=== PATIENT | male | born 1940 | race Caucasian/White ===

== ENCOUNTER 2017-08-01 09:22 | Inpatient (IN) | payer OTHER, MEDICAID, MEDICARE ==
[2017-08-01] VITALS (9 sets, daily range): BP systolic 93–146; BP diastolic 51–81; PULSE 78–100; RESP 16–18; TEMP 96.9–99.6; O2SAT 94–100
[~2017-08-01] VITALS: Ht 157.5 cm; Wt 79.5 kg
[~2017-08-01 09:22] MED LIST: ADVA100A INH; SIMV20TA OR
[2017-08-01] MEDS ORDERED: SIMV40TA PO (09:42)
[2017-08-01] MEDS ORDERED: ADVA100A INH (09:42)
[2017-08-01] MEDS ORDERED: LOSA50TA2 PO (09:42)
[2017-08-01] MEDS ORDERED: VITA100021 SL (09:42)
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
[2017-08-01 10:17] LABS: AUTOMATED NEUTROPHIL # 8.3 TH/MM3 (1.8-7.7); BASOPHIL # 0.1 TH/MM3 (0-0.2); BASOPHIL % 0.9 % (0.0-2.0); EOSINOPHIL # 0.2 TH/MM3 (0-0.4); EOSINOPHIL % 1.5 % (0.0-4.0); HEMATOCRIT 35.3 % (39.0-51.0); HEMO FLAGS DIFF FINAL; I-STAT POTASSIUM 2.9 MMOL/L (3.5-4.9); LYMPH % 16.1 % (9.0-44.0); LYMPHOCYTE # 1.7 TH/MM3 (1.0-4.8); MEAN CORPUSCULAR HEMOGLOBIN 30.6 PG (27.0-34.0); MONO % 3.8 % (0.0-8.0); NEUT % 77.7 % (16.0-70.0); PLATELET COUNT 266 TH/MM3 (150-450); RED BLOOD COUNT 3.92 MIL/MM3 (4.50-5.90); RED CELL DISTRIBUTION WIDTH 14.2 % (11.6-17.2); WHITE BLOOD COUNT 10.7 TH/MM3 (4.0-11.0)
[2017-08-01 10:25] LABS: APTT (PATIENT) 23.8 SEC (24.3-30.1); PROTHROMBIN TIME - PATIENT 11.2 SEC (9.8-11.6)
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
[2017-08-01] MEDS ORDERED: IOHEXOL 350 MG/ML 10 ML VIAL (for RAD DIAG) IVCONTRAST ONE (10:46)
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
[2017-08-01] MEDS ORDERED: TETANUS/DIPHTHERIA TOXOID ADULT 0.5 ML VIAL IM ONE (11:30)
[2017-08-01] MEDS ORDERED: LIDOCAINE HCL 1% 50 ML VIAL INFIL ONE (11:30)
--- NOTE | 2017-08-01 11:47 | RADRPT ---
EXAM DATE/TIME: 08/01/2017 11:24 [facility] COMPARISON: HAND RIGHT LIMITED (2VWS), August 01, 2017, 10:11. INDICATIONS : Left leg pain MEDICAL HISTORY : None. SURGICAL HISTORY : None. ENCOUNTER: Initial ACUITY: 1 day PAIN SCORE: 10/10 LOCATION: Left tibia FINDINGS: The examination demonstrates nondisplaced fractures involving the distal fibula and at least 2 points in the fibula. There is nondisplaced fracture involving the medial malleolus. The remainder of the osseous structures are grossly intact. CONCLUSION: 1. The fibular diaphysis is fractured in 2 places. These are nondisplaced. 2. Nondisplaced fracture of the medial malleolus. Johnnie Tipton MD on August 01, 2017 at 11:45 Board Certified Radiologist. This report was verified electronically.
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
[2017-08-01] MEDS: LACTATED RINGER'S 1000 ML INJ 1,000 ML IV SCH (12:17)
[2017-08-01] MEDS ORDERED: POTASSIUM CHLORIDE 25 MEQ EFFERVESCENT TAB PO ONE (12:30)
[2017-08-01] MEDS ORDERED: MISCELLANEOUS NURSING INFORMATION XX SCH (12:30)
[2017-08-01] MEDS ORDERED: HYDROmorphone HCL PF 1 MG/ML VIAL IVP PRN (12:30)
[2017-08-01] MEDS ORDERED: CHLORHEXIDINE GLUCONATE 2 % 1 PACK (2 CLOTHS) TOP PRN (12:30)
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
[2017-08-01] MEDS: HYDROmorphone HCL PF 1 MG/ML VIAL IVP PRN ×2 (16:25→22:07)
[2017-08-01] MEDS ORDERED: ONDANSETRON HCL 4 MG/2 ML VIAL IV PUSH PRN (17:15)
[2017-08-01] MEDS: DOCUSATE SODIUM 100 MG CAP PO SCH (21:44)
[2017-08-01] MEDS: ENOXAPARIN SODIUM 30 MG/0.3 ML SYRINGE SQ SCH (21:44)
[2017-08-01] MEDS: FAMOTIDINE 20 MG TAB PO SCH (21:44)
[2017-08-01] MEDS: MAGNESIUM HYDROXIDE SUSP 30 ML CUP PO SCH (21:44)
[2017-08-02] MEDS: HYDROmorphone HCL PF 1 MG/ML VIAL IVP PRN ×4 (01:31→23:27)
[2017-08-02 03:55] VITALS: BP 101/55; PULSE 72; RESP 18; TEMP 97.6; O2SAT 97
[2017-08-02] MEDS ORDERED: CHLORHEXIDINE GLUCONATE 2 % 1 PACK (2 CLOTHS) TOP SCH (04:00)
[2017-08-02] MEDS: LACTATED RINGER'S 1000 ML INJ 1,000 ML IV SCH ×2 (06:57→09:44)
[2017-08-02 08:00] VITALS: BP 102/67; PULSE 86; RESP 20; TEMP 98.6; O2SAT 95
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
[2017-08-02] MEDS: ENOXAPARIN SODIUM 30 MG/0.3 ML SYRINGE SQ SCH ×2 (09:42→20:00)
[2017-08-02] MEDS: LACTULOSE SYRUP 20 GM/30 ML CUP PO SCH (09:43)
[2017-08-02] MEDS: DOCUSATE SODIUM 100 MG CAP PO SCH ×2 (09:44→21:00)
[2017-08-02] MEDS: FAMOTIDINE 20 MG TAB PO SCH ×2 (09:44→23:23)
[2017-08-02] MEDS ORDERED: ACETAMINOPHEN/HYDROcodone 325 MG/5 MG TAB PO PRN (11:15)
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
[2017-08-02 12:00] VITALS: BP 101/65; PULSE 96; RESP 20; TEMP 98.7; O2SAT 93
[2017-08-02 12:26] LABS: BASOPHIL # 0.1 TH/MM3 (0-0.2); BASOPHIL % 1.3 % (0.0-2.0); EOSINOPHIL # 0.2 TH/MM3 (0-0.4); HEMATOCRIT 30.8 % (39.0-51.0); HEMO FLAGS DIFF FINAL; LYMPH % 10.1 % (9.0-44.0); LYMPHOCYTE # 0.9 TH/MM3 (1.0-4.8); MEAN CELL VOLUME 90.8 FL (80.0-100.0); MEAN CORPUSCULAR HEMOGLOBIN 30.7 PG (27.0-34.0); MEAN CORPUSCULAR HGB CONC 33.8 % (32.0-36.0); MONO % 6.6 % (0.0-8.0); PLATELET COUNT 182 TH/MM3 (150-450); RED CELL DISTRIBUTION WIDTH 14.5 % (11.6-17.2); WHITE BLOOD COUNT 8.7 TH/MM3 (4.0-11.0)
[2017-08-02 12:41] LABS: BICARBONATE 27.7 MEQ/L (21.0-32.0); POTASSIUM 3.9 MEQ/L (3.5-5.1)
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
[2017-08-02] MEDS: BACITRACIN TOP OINT 15 GM TUBE TOPICAL SCH ×2 (14:00→23:23)
[2017-08-02] MEDS: ACETAMINOPHEN/HYDROcodone 325 MG/7.5 MG TAB PO PRN ×2 (14:16→18:38)
[2017-08-02] MEDS ORDERED: ARTIFICIAL TEARS OPTH SOLN 15 ML BTL EACH EYE PRN (14:30)
[2017-08-02 16:00] VITALS: BP 100/61; PULSE 89; RESP 20; TEMP 98.9; O2SAT 94
[2017-08-02 17:20] VITALS: BP 82/43; PULSE 71
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
[2017-08-02 20:00] VITALS: BP 110/69; PULSE 87; RESP 18; TEMP 98.1; O2SAT 93
[2017-08-02] MEDS: MAGNESIUM HYDROXIDE SUSP 30 ML CUP PO SCH (21:00)
[2017-08-03] VITALS: BP 110/58; PULSE 90; RESP 18; TEMP 98.9; O2SAT 95
[2017-08-03 04:00] VITALS: BP 113/69; PULSE 110; RESP 17; TEMP 99.3; O2SAT 92
[2017-08-03 05:08] LABS: AUTOMATED NEUTROPHIL # 7.7 TH/MM3 (1.8-7.7); BASOPHIL # 0.1 TH/MM3 (0-0.2); BASOPHIL % 0.8 % (0.0-2.0); EOSINOPHIL # 0.3 TH/MM3 (0-0.4); EOSINOPHIL % 2.6 % (0.0-4.0); HEMATOCRIT 29.7 % (39.0-51.0); HEMO FLAGS DIFF FINAL; LYMPH % 7.8 % (9.0-44.0); LYMPHOCYTE # 0.8 TH/MM3 (1.0-4.8); MEAN CELL VOLUME 91.2 FL (80.0-100.0); MEAN CORPUSCULAR HEMOGLOBIN 30.7 PG (27.0-34.0); MEAN CORPUSCULAR HGB CONC 33.6 % (32.0-36.0); MONO % 10.8 % (0.0-8.0); PLATELET COUNT 177 TH/MM3 (150-450); RED BLOOD COUNT 3.26 MIL/MM3 (4.50-5.90); WHITE BLOOD COUNT 9.9 TH/MM3 (4.0-11.0)
[2017-08-03 05:34] LABS: BICARBONATE 27.7 MEQ/L (21.0-32.0); POTASSIUM 4.1 MEQ/L (3.5-5.1)
[2017-08-03 08:00] VITALS: BP 125/64; PULSE 94; RESP 18; TEMP 98.7; O2SAT 93
[2017-08-03] MEDS: FAMOTIDINE 20 MG TAB PO SCH ×2 (08:54→21:00)
[2017-08-03] MEDS: DOCUSATE SODIUM 100 MG CAP PO SCH ×2 (08:54→21:00)
[2017-08-03] MEDS: ENOXAPARIN SODIUM 30 MG/0.3 ML SYRINGE SQ SCH ×2 (08:54→20:00)
[2017-08-03] MEDS: BACITRACIN TOP OINT 15 GM TUBE TOPICAL SCH ×2 (08:55→21:00)
[2017-08-03] MEDS: HYDROmorphone HCL PF 1 MG/ML VIAL IVP PRN (08:56)
[2017-08-03] MEDS: SODIUM CHLORIDE 0.9% FLUSH 10 ML FLUSH IVF PRN (08:56)
[2017-08-03] MEDS: LACTULOSE SYRUP 20 GM/30 ML CUP PO SCH (08:56)
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
[2017-08-03] MEDS ORDERED: HYDR-3516 PO (11:34)
[2017-08-03] MEDS ORDERED: MAGN400S PO (11:34)
[2017-08-03] MEDS ORDERED: DOCU1CAP39 PO (11:34)
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
[2017-08-03 12:00] VITALS: BP 108/60; PULSE 85; RESP 18; TEMP 98.8; O2SAT 92
[2017-08-03 16:25] VITALS: BP 118/62; PULSE 108; RESP 16; TEMP 99.4; O2SAT 95
[2017-08-03 19:20] VITALS: BP 105/65; PULSE 99; RESP 20; TEMP 96.9; O2SAT 95
[2017-08-03] MEDS: MAGNESIUM HYDROXIDE SUSP 30 ML CUP PO SCH (21:00)
[2017-08-04] VITALS: BP 118/64; PULSE 88; RESP 16; TEMP 96.9; O2SAT 94
[2017-08-04] MEDS: ACETAMINOPHEN/HYDROcodone 325 MG/7.5 MG TAB PO PRN (02:02)
[2017-08-04 04:00] VITALS: BP 101/59; PULSE 81; RESP 18; TEMP 97.6; O2SAT 96
[2017-08-04 08:00] VITALS: BP 109/65; PULSE 98; RESP 18; TEMP 98.3; O2SAT 93
[2017-08-04] MEDS: LACTULOSE SYRUP 20 GM/30 ML CUP PO SCH (09:00)
[2017-08-04] MEDS: DOCUSATE SODIUM 100 MG CAP PO SCH ×2 (09:45→21:00)
[2017-08-04] MEDS: FAMOTIDINE 20 MG TAB PO SCH ×2 (09:45→21:00)
[2017-08-04] MEDS: ENOXAPARIN SODIUM 30 MG/0.3 ML SYRINGE SQ SCH ×2 (09:46→22:00)
[2017-08-04] MEDS: BACITRACIN TOP OINT 15 GM TUBE TOPICAL SCH ×2 (09:47→22:01)
[2017-08-04 12:00] VITALS: BP 118/78; PULSE 84; RESP 18; TEMP 98.3; O2SAT 96
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
[2017-08-04 16:00] VITALS: BP 102/60; PULSE 89; RESP 16; TEMP 99.1; O2SAT 99
[2017-08-04 19:20] VITALS: BP 113/60; PULSE 76; RESP 20; TEMP 96.8; O2SAT 99
[2017-08-04] MEDS: MAGNESIUM HYDROXIDE SUSP 30 ML CUP PO SCH (21:00)
[2017-08-05 00:52] VITALS: BP 100/64; PULSE 78; RESP 18; TEMP 97; O2SAT 97
[2017-08-05 06:22] VITALS: BP 113/66; PULSE 97; RESP 18; TEMP 97.1; O2SAT 98
[2017-08-05 08:00] VITALS: BP 97/78; PULSE 89; RESP 18; TEMP 96.5; O2SAT 96
[2017-08-05] MEDS: DOCUSATE SODIUM 100 MG CAP PO SCH ×2 (09:00→19:58)
[2017-08-05] MEDS: LACTULOSE SYRUP 20 GM/30 ML CUP PO SCH (09:00)
[2017-08-05] MEDS: FAMOTIDINE 20 MG TAB PO SCH ×2 (09:27→19:58)
[2017-08-05] MEDS: ENOXAPARIN SODIUM 30 MG/0.3 ML SYRINGE SQ SCH ×2 (09:32→19:58)
[2017-08-05] MEDS: BACITRACIN TOP OINT 15 GM TUBE TOPICAL SCH ×2 (09:32→19:58)
[2017-08-05 12:00] VITALS: BP 109/66; PULSE 86; RESP 18; TEMP 97; O2SAT 96
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
[2017-08-05] MEDS: MAGNESIUM HYDROXIDE SUSP 30 ML CUP PO SCH (19:58)
[2017-08-05 20:00] VITALS: BP 119/66; PULSE 76; RESP 17; TEMP 98; O2SAT 98
[2017-08-06] VITALS: BP 112/62; PULSE 84; RESP 16; TEMP 97.2; O2SAT 95
[2017-08-06 07:13] VITALS: BP 122/73; PULSE 84; RESP 16; TEMP 95.5; O2SAT 98
[2017-08-06] MEDS: DOCUSATE SODIUM 100 MG CAP PO SCH ×2 (09:00→21:04)
[2017-08-06] MEDS: LACTULOSE SYRUP 20 GM/30 ML CUP PO SCH (09:00)
[2017-08-06] MEDS: FAMOTIDINE 20 MG TAB PO SCH ×2 (09:04→21:05)
[2017-08-06] MEDS: BACITRACIN TOP OINT 15 GM TUBE TOPICAL SCH ×2 (09:07→21:04)
[2017-08-06] MEDS: ENOXAPARIN SODIUM 30 MG/0.3 ML SYRINGE SQ SCH ×2 (09:08→21:04)
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
[2017-08-06] MEDS ORDERED: WALKER WHEELS/F1 MIS (11:24)
[2017-08-06 11:40] VITALS: BP 117/69; PULSE 83; RESP 16; TEMP 97; O2SAT 96
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
[2017-08-06] MEDS ORDERED: TAMS5CAP PO (12:11)
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
[2017-08-06 15:55] VITALS: BP 128/72; PULSE 78; RESP 16; TEMP 98.2; O2SAT 97
[2017-08-06] MEDS: ACETAMINOPHEN/HYDROcodone 325 MG/7.5 MG TAB PO PRN (16:38)
[2017-08-06] MEDS: TAMSULOSIN HCL 0.4 MG CAP PO SCH (16:38)
[2017-08-06 20:00] VITALS: BP 115/69; PULSE 81; RESP 17; TEMP 97.5; O2SAT 99
[2017-08-06] MEDS: MAGNESIUM HYDROXIDE SUSP 30 ML CUP PO SCH (21:04)
[2017-08-07] VITALS: BP 126/77; PULSE 79; RESP 16; TEMP 98.1; O2SAT 98
[2017-08-07] MEDS: ACETAMINOPHEN/HYDROcodone 325 MG/7.5 MG TAB PO PRN ×2 (01:25→05:47)
[2017-08-07 07:31] VITALS: BP 121/72; PULSE 80; RESP 16; TEMP 96.5; O2SAT 96
[2017-08-07] MEDS: LACTULOSE SYRUP 20 GM/30 ML CUP PO SCH (07:34)
[2017-08-07] MEDS: ENOXAPARIN SODIUM 30 MG/0.3 ML SYRINGE SQ SCH (07:34)
[2017-08-07] MEDS: TAMSULOSIN HCL 0.4 MG CAP PO SCH (07:34)
[2017-08-07] MEDS: SODIUM CHLORIDE 0.9% FLUSH 10 ML FLUSH IVF PRN (07:34)
[2017-08-07] MEDS: FAMOTIDINE 20 MG TAB PO SCH (07:37)
[2017-08-07] MEDS: DOCUSATE SODIUM 100 MG CAP PO SCH (07:37)
[2017-08-07] MEDS: BACITRACIN TOP OINT 15 GM TUBE TOPICAL SCH (07:38)
== END 2017-08-07 09:57 | disposition home health service (06) | DRG 552 ==
LOC: NEPE 09:22 → NEDA 12:09 → N06A 13:46
PROVIDERS: ADMIT Surgery Trauma Surgery; ATTEND Surgery Trauma Surgery
PROC: 0HQ1XZZ Repair Face Skin, External Approach (ICD-10-PCS; principal; 2017-08-01)
PROC: 0HQFXZZ Repair Right Hand Skin, External Approach (ICD-10-PCS; 2017-08-01)
DX: S32.010A Wedge compression fracture of first lumbar vertebra, initial encounter for closed fracture (principal); I10 Essential (primary) hypertension; S82.52XA Displaced fracture of medial malleolus of left tibia, initial encounter for closed fracture; S82.402A Unspecified fracture of shaft of left fibula, initial encounter for closed fracture; F17.210 Nicotine dependence, cigarettes, uncomplicated; S61.411A Laceration without foreign body of right hand, initial encounter; S01.111A Laceration without foreign body of right eyelid and periocular area, initial encounter; J45.909 Unspecified asthma, uncomplicated; E78.5 Hyperlipidemia, unspecified; M47.9 Spondylosis, unspecified; M25.511 Pain in right shoulder; M25.531 Pain in right wrist; R07.81 Pleurodynia; V13.4XXA Pedal cycle driver injured in collision with car, pick-up truck or van in traffic accident, initial encounter; Y93.55 Activity, bike riding
CPT/HCPCS: 70450; 71010; 72125; 72131; 72170; 73030; 73120; 73590; 73610; 74177; 80048; 82435; 82565; 82947; 84132; 84295; 84520; 85025; 85610; 85730; 86850; 86900; 86901; 90714; 94150; J1170; J1650; J2405; J7120; L0200; L0484; Q9967